=== PATIENT | female | born 1945 | race Caucasian/White ===

== ENCOUNTER 2018-05-28 10:22 | Emergency (ER) | payer MEDICARE, OTHER ==
[~2018-05-28] VITALS: Wt 62.8 kg
[2018-05-28] MEDS ORDERED: ATEN-51 PO (11:19)
[2018-05-28] MEDS ORDERED: ASPI-903 PO (11:20)
--- NOTE | 2018-05-28 11:47 | ERD ---
ER Documentation Chief Complaint Chief Complaint LEFT KNEE PAIN AFTER A [facility] FALL HPI This is a 72-year-old female who slipped on wet floor in her kitchen yesterday and she had her left lower leg slightly bend at the knee in an abduction and then hit her knee on the floor. No other trauma no loss of consciousness or head injury no numbness weakness. The patient can ambulate but it is painful at the medial aspect of the knee ROS All systems reviewed and are negative except as per history of present illness. Medications Home Meds Reported Medications Aspirin* (Aspirin* Chew) 81 Mg Tab.chew, 81 MG PO DAILY, TAB.CHEW 05/28/18 Atenolol* (Atenolol*) 25 Mg Tablet, 25 MG PO DAILY, #30 TAB 05/28/18 Allergies Allergies: Coded Allergies: No Known Allergy (Unverified , 05/28/18) PMhx/Soc History of Surgery: Yes (appendectomy) Anesthesia Reaction: No Hx Neurological Disorder: No Hx Respiratory Disorders: No Hx Cardiac Disorders: No Hx Psychiatric Problems: No Hx Miscellaneous Medical Probl: Yes (HTN , ELEVATED CHOLESTEROL) Hx Alcohol Use: No Hx Substance Use: No Hx Tobacco Use: No Smoking Status: Never smoker FmHx Family History: No coronary disease Physical Exam Vitals Vital Signs Date Temp Pulse Resp B/P (MAP) Pulse Ox O2 O2 Flow FiO2 Time Delivery Rate 05/28/18 98.0 98 18 139/63 99 10:25 (88) Physical Exam Const: Well-developed, well-nourished Head: Atraumatic, normocephalic Eyes: Normal Conjunctiva, PERRLA, EOMI, normal sclera, no nystagmus ENT: Normal External Ears, Nose and Mouth, moist mucus membranes. Neck: Full range of motion. No meningismus, no lymphadenopathy. Resp: Clear to auscultation bilaterally, no wheezing, rhonchi, rales Cardio: Regular rate and rhythm, no murmurs, S1 S2 present Abd: Soft, non tender x 4, non distended. Normal bowel sounds, no guarding or rebound, no pulsitile abdominal masses or bruits Skin: No petechiae or rashes, no ecchymosis , no maculopapular rash Back: No midline or flank tenderness Ext: No cyanosis, or edema, FROM x 4, normal inspection, there is medial tenderness at the joint space on the left knee, no ligamentous laxity neurovascularly intact x 4 Neur: Awake and alert, STR 5/5 x 4, sensation intact x 4, no focal findings, cerebellum intact Psych: Normal Mood and Affect Procedures/MDM MR #: [id number] DOS: 05/28/18 1105 Ordering MD: VAL SANDOVAL DO Location: E/R Room/Bed: PROCEDURE: Left knee series CLINICAL INDICATION: Trauma TECHNIQUE: AP, PA axial, 2 lateral images were obtained of the left knee. COMPARISON: None FINDINGS: No evidence acute fracture or dislocation. The bony mineralization is normal. No focal bony blastic or lytic lesions. Soft tissues are unremarkable. IMPRESSION: No evidence of acute fracture dislocation or joint effusion. RPTAT:AAJJ Physician Gerald Date Time Electronically viewed and signed by Bambi Escobedo Physician on 05/28/2018 11:43 BM/ CC: VAL SANDOVAL DO [id number] We will given Trever wrap and crutches for knee sprain Departure Diagnosis: Primary Impression: Sprain of left knee Encounter type: initial encounter Involved ligament of knee: unspecified l igament Qualified Codes: S83.92XA - Sprain of unspecified site of left knee, initial encounter Condition: Stable VAL SANDOVAL DO May 28, 2018 11:47
[2018-05-28] MEDS ORDERED: IBUP-1542 PO (11:48)
[2018-05-28 12:07] VITALS: BP 132/70; PULSE 78; RESP 20
== END 2018-05-28 12:07 | disposition home or self-care (01) ==
LOC: E/R 10:22
DX: S83.92XA Sprain of unspecified site of left knee, initial encounter (principal); I10 Essential (primary) hypertension; W01.198A Fall on same level from slipping, tripping and stumbling with subsequent striking against other object, initial encounter; Y92.000 Kitchen of unspecified non-institutional (private) residence as the place of occurrence of the external cause; Z79.82 Long term (current) use of aspirin
CPT/HCPCS: 73562